=== PATIENT | female | born 1940 | race Caucasian/White ===

== ENCOUNTER 2016-11-08 12:40 | Emergency (ER) | payer OTHER ==
[~2016-11-08] VITALS: Ht 160 cm; Wt 74.8 kg
[2016-11-08 12:47] VITALS: TEMP 36.8; Ht 160 cm; Wt 74.8 kg
--- NOTE | 2016-11-08 13:11 | EMERGENCY ROOM VISIT NOTE ---
History First contact with patient: 12:56 Chief Complaint: KNEEPAIN Stated Complaint: PAIN IN KNEE History of Present Illness The patient is a 76 year old female who presents to the Emergency Room with complaints of left knee and leg pain. The patient states that she arrived from [place] 4 days ago. It was in [address] The patient states that she had muscle spasm and cramping in both legs. She does not recall any specific injury. She denies any redness, swelling, warmth, fevers. She has a history of superficial thrombophlebitis. She has a history of meniscal injury in that leg. She denies any true pain while at rest. She was seen at [facility] and referred to the emergency department for further evaluation and management. She denies any pain in her chest or trouble breathing. She does take aspirin and Plavix secondary to a previous TIA. Review of Systems A 10 system review of systems was completed with positives and pertinent negatives listed in the HPI. Past Medical/Surgical History Medical Problems: (1) TIA (transient ischemic attack) Social History Smoking Status: Never Smoker Housing Status: lives with family Current/Historical Medications Scheduled Aspirin (Aspir-Low), 81 MG PO DAILY Atenolol (Tenormin), 25 MG PO QAM Atorvastatin (Lipitor), 10 MG PO QPM Citalopram Hydrobromide (Citalopram Hydrobromide), 10 MG PO DAILY Clopidogrel Bisulfate (Plavix), 75 MG PO DAILY Meloxicam (Meloxicam), 1 MG PO DAILY Pantoprazole (Protonix), 40 MG PO MWF Potassium (Potassium), 99 MG PO DAILY Triamterene/Hctz (Triamterene/Hctz 37.5-25MG), 1 TAB PO DAILY Allergies Coded Allergies: No Known Allergies (Unverified , 11/08/16) Physical Exam Vital Signs Date Time Temp Pulse Resp B/P (MAP) Pulse Ox O2 Delivery O2 Flow Rate FiO2 11/08/16 15:36 50 19 135/97 97 11/08/16 12:47 36.8 58 18 198/87 96 Room Air Physical Exam VITALS: Vitals are noted on the nurse's note and reviewed by myself. Vital signs stable. GENERAL: This is a 76-year-old female XX, in no acute distress, nondiaphoretic, well-developed well-nourished. SKIN: The skin was without rashes, erythema, edema, or bruising. There is no tenting of the skin. Capillary reflex less than 2 seconds. HEAD: Normocephalic atraumatic. EARS: External ears normal in appearance. EYES: Pupils equal round and reactive to light and accommodation. Conjunctivae without injection, sclerae without icterus. Extraocular movements intact. NOSE: Patent, turbinates without inflammation or discharge. No sinus tenderness. MOUTH: Mucous membranes moist. Tonsils are not enlarged. Pharynx without erythema or exudate. Uvula midline. Airway patent. Tongue does not deviate. NECK: Supple without nuchal rigidity. No JVD. HEART: Regular rate and rhythm without murmurs gallops or rubs. LUNGS: Clear to auscultation bilaterally without wheezes, rales or rhonchi. No retractions or accessory muscle use. MUSCULOSKELETAL: No muscle atrophy, erythema, or edema noted. Full range of motion without joint tenderness in all extremities. No tenderness to palpation. Normal gait. Strength 5/5 throughout. There is no obvious laxity. Negative anterior drawer. There is a positive Danya's. NEURO: Patient was alert and oriented to person place and time. No focal neurological deficits. Medical Decision & Procedures ER Provider Diagnostic Interpretation: LEFT KNEE 3 VIEWS HISTORY: left knee pain COMPARISON: None. FINDINGS: No acute fracture or dislocation. No significant knee effusion. Chondrocalcinosis. Mild tricompartmental osteoarthritis. 9 mm cortical defect within the central weightbearing portion of the medial femoral condyle. There is surrounding sclerosis. This favors an osteochondral defect. There may be a small 5 mm intra-articular loose body adjacent to the medial joint space. IMPRESSION: 1. No acute fracture or dislocation within the left knee. 2. A 9 mm osteochondral defect within the medial femoral condyle. There may be a 5 mm intra-articular loose body adjacent to the medial aspect of the knee joint. 3. Chondrocalcinosis. LEFT LOWER EXTREMITY VENOUS DOPPLER HISTORY: left calf and posterior knee pain COMPARISON STUDY: None. FINDINGS: There is normal compressibility, flow, and augmentation within the left lower extremity deep venous system. IMPRESSION: No DVT within the left lower extremity. ED Course The patient was seen and examined. Previous visits were reviewed. The patient does not have fever. There is no erythema or warmth to the knee to suggest gout or infection. Imaging was obtained as above. There is no evidence for DVT. The patient has degenerative changes to the left knee on x-ray. She has what looks like an osteochondral defect. This could be related to her previous meniscal tear or could be new. She does have an orthopedic doctor at home and should contact them for a follow-up appointment for further evaluation and management. She was given an Darren wrap. She declined pain medications or walker. She should return to the ER with any worsening symptoms. The patient was also seen and examined by Dr. Katz who agrees with the assessment and treatment plan. Medical Decision The differential diagnosis includes cellulitis, septic arthritis, gout, DVT, superficial thrombophlebitis, Newberry's cyst, ligamentous injury, meniscal injury , osteoarthritis, among others Impression Primary Impression: Osteoarthritis, knee Additional Impression: Pain in left lower leg Departure Information Dispostion Home / Self-Care Condition GOOD Referrals Tom Venegas M.D. Patient Instructions ED Meniscal Injury Knee Poss, [facility], Osteoarthritis Additional Instructions Try tylenol, according to package instructions, for pain Avoid NSAIDs such as motrin, advil, ibuprofen, aleve Contact your orthopedic doctor when you return home for recheck, further management Return with worsening symptoms, redness, pain swelling, chest pain, trouble breathing Problem Qualifiers
[2016-11-08] MEDS ORDERED: PLAVIX75 PO (13:16)
[2016-11-08] MEDS ORDERED: MELO15TA4 PO (13:16)
[2016-11-08] MEDS ORDERED: ATEN-173 PO (13:17)
[2016-11-08] MEDS ORDERED: POTA99TA PO (13:17)
[2016-11-08] MEDS ORDERED: ATOR10TA82 PO (13:17)
[2016-11-08] MEDS ORDERED: TRIATAB3 PO (13:17)
[2016-11-08] MEDS ORDERED: CITA10TA4 PO (13:17)
[2016-11-08] MEDS ORDERED: ASPI81TA25 PO (13:17)
[2016-11-08] MEDS ORDERED: PANT40TA PO (13:17)
--- NOTE | 2016-11-08 13:44 | EMERGENCY ROOM VISIT NOTE ---
ED Visit Note First contact with patient: 12:56 I have seen and examined this patient with Sophia Knight and generally agree with the treatment plan as discussed. Current/Historical Medications Scheduled Aspirin (Aspir-Low), 81 MG PO DAILY Atenolol (Tenormin), 25 MG PO QAM Atorvastatin (Lipitor), 10 MG PO QPM Citalopram Hydrobromide (Citalopram Hydrobromide), 10 MG PO DAILY Clopidogrel Bisulfate (Plavix), 75 MG PO DAILY Meloxicam (Meloxicam), 1 MG PO DAILY Pantoprazole (Protonix), 40 MG PO MWF Potassium (Potassium), 99 MG PO DAILY Triamterene/Hctz (Triamterene/Hctz 37.5-25MG), 1 TAB PO DAILY Allergies Coded Allergies: No Known Allergies (Unverified , 11/08/16) Vital Signs Date Time Temp Pulse Resp B/P (MAP) Pulse Ox O2 Delivery O2 Flow Rate FiO2 11/08/16 12:47 36.8 58 18 198/87 96 Room Air Departure Information Referrals No Doctor, Assigned (PCP) Patient Instructions My [facility]
--- NOTE | 2016-11-08 14:56 | DIAGNOSTIC IMAGING REPORT ---
LEFT KNEE 3 VIEWS HISTORY: left knee pain COMPARISON: None. FINDINGS: No acute fracture or dislocation. No significant knee effusion. Chondrocalcinosis. Mild tricompartmental osteoarthritis. 9 mm cortical defect within the central weightbearing portion of the medial femoral condyle. There is surrounding sclerosis. This favors an osteochondral defect. There may be a small 5 mm intra-articular loose body adjacent to the medial joint space. IMPRESSION: 1. No acute fracture or dislocation within the left knee. 2. A 9 mm osteochondral defect within the medial femoral condyle. There may be a 5 mm intra-articular loose body adjacent to the medial aspect of the knee joint. 3. Chondrocalcinosis. Electronically signed by: Bay Nunn M.D. 11/08/2016 2:55 PM Dictated Date/Time: 11/08/2016 2:52 PM
--- NOTE | 2016-11-08 15:04 | DIAGNOSTIC IMAGING REPORT ---
LEFT LOWER EXTREMITY VENOUS DOPPLER HISTORY: left calf and posterior knee pain COMPARISON STUDY: None. FINDINGS: There is normal compressibility, flow, and augmentation within the left lower extremity deep venous system. IMPRESSION: No DVT within the left lower extremity. Electronically signed by: Bay Nunn M.D. 11/08/2016 3:02 PM Dictated Date/Time: 11/08/2016 3:02 PM
[2016-11-08 15:36] VITALS: BP 135/97; PULSE 50; O2SAT 97
== END 2016-11-08 15:37 | disposition home or self-care (01) ==
LOC: C.EDB 12:41 → C.EDD 15:37
DX: M17.12 Unilateral primary osteoarthritis, left knee (principal); M79.662 Pain in left lower leg; Z86.72 Personal history of thrombophlebitis; Z79.01 Long term (current) use of anticoagulants; Z79.82 Long term (current) use of aspirin; Z86.73 Personal history of transient ischemic attack (TIA), and cerebral infarction without residual deficits

== ENCOUNTER 2024-02-28 14:31 | Observation (INO) ==
[2024-02-28 16:50] LABS: Basophils # (auto) 0.01 K/uL (0.00-0.20); Basophils % (auto) 0.1 %; Eosinophils # (auto) 0.51 K/uL (0.00-0.50); Eosinophils % (auto) 3.9 %; Hematocrit (blood only) 39.7 % (37.0-47.0); Hemoglobin 12.9 g/dl (12.0-16.0); Immature Granulocytes # (auto) 0.06 K/uL (0.01-0.20); Immature Granulocytes % (auto) 0.5 %; Lymphocytes # (auto) 1.72 K/uL (1.20-3.40); Lymphocytes % (auto) 13.1 %; Mean Corpuscular Hemoglobin 30.7 pg (25.0-34.0); Mean Corpuscular Hgb Conc 32.5 g/dL (32.0-36.0); Mean Corpuscular Volume 94.5 fL (80.0-100.0); Mean Platelet Volume 9.8 fL (9.4-12.4); Monocytes # (auto) 0.72 K/uL (0.11-0.59); Monocytes % (auto) 5.5 %; Neutrophils # (auto) 10.09 K/uL (1.40-6.50); Neutrophils % (auto) 76.9 %; Platelet Count 180 K/uL (130-400); RDW Coefficient of Variation 13.2 % (11.5-14.5); RDW Standard Deviation 45.6 fL (36.4-46.3); White Blood Count 13.11 K/ul (4.8-10.8)
[2024-02-28 17:12] LABS: Albumin Globulin Ratio 1.4 (0.9-2); Albumin Level 3.7 gm/dl (3.4-5.0); BUN Creatinine Ratio 19.3 (10-20); Bilirubin,Total 0.9 mg/dl (0.2-1.0); Calcium 8.8 mg/dl (8.6-10.3); Creatinine Clr Calc Pharmacy 22.2 ml/min; Globulin 2.6 gm/dl (2.5-4.0); Potassium 4.1 mmol/L (3.5-5.1); Total Protein 6.3 gm/dl (6.0-8.3)
--- NOTE | 2024-02-28 17:20 | Emergency Department Note ---
Impression & Plan SETH (acute kidney injury), Acute UTI, Allergic reaction, Failure of outpatient treatment ED Provider Note NAME: VITALY CALDERON AGE: 83 SEX: F : 1940 ARRIVES VIA: Walk-In INFORMANT: [Patient] ED PROVIDER(S): [Brandt Cifuentes MD] CHIEF COMPLAINT: Rash HISTORY OF PRESENT ILLNESS: The patient is an 83-year-old female who states that she was diagnosed with a urinary infection. The patient had been on Macrobid but this was not clearing her infection. She came to the ED yesterday and was found have a white count of 15,000. She was diagnosed with a UTI and given a dose of IV Rocephin. After she returned home, she developed hives. The hives continued today and she was told not to take the Keflex that had been prescribed outpatient. She tried to see her doctor's office but was referred to the ER. The patient states that she did take a Benadryl earlier today. She thinks the hives are a bit better. There is no shortness of breath, no cough or cold. She does complain of some lower back pain but she was told this was likely from her urinary infection. There is no fever today however, yesterday, there was a low-grade temperature. PMHx/PSHx/Social Hx: See Below PHYSICAL EXAM: GENERAL: Patient is in no acute distress. HEENT: No acute trauma, normocephalic atraumatic, mucous membranes moist, no nasal congestion. No uvular edema. NECK: No stridor, no adenopathy, no meningismus, trachea is midline. LUNGS: Clear to auscultation bilaterally, no wheeze, no rhonchi, breath sounds equal. HEART: Without murmurs gallops or rubs, regular rate and rhythm. ABDOMEN: Soft, nontender, no peritonitis. EXTREMITIES: No cyanosis, full range of motion of all the joints without pain or difficulty. NEUROLOGIC: Oriented x 3, no acute motor or sensory deficits, no focal weakness. SKIN: No jaundice, no diaphoresis. She does have some scattered raised erythematous lesions consistent with urticaria. These do [place]. DIFFERENTIAL DIAGNOSIS: Allergic reaction, pyelonephritis, failed outpatient management, renal failure, among others. EMERGENCY DEPARTMENT PROCEDURES: MEDICAL DECISION MAKING: There is a mild leukocytosis, the white count has decreased from yesterday's value of 15. There was a normal hemoglobin and platelet count. There was some acute kidney injury with a creatinine of 1.71. No electrolyte abnormality in need of emergent correction. There was no concerning liver enzyme elevation. On exam, the patient did have urticarial lesions consistent with an allergic reaction. She was not wheezing. There was no uvular edema. Patient received IV saline, 1 L. She was given a dose of oral Levaquin, 500 mg. Given the failed outpatient treatment for UTI, given her allergic reaction, given the acute kidney injury, given her age, I do think a hospital stay is warranted. I did speak with the patient and her family. I spoke with case management, the on-call hospitalist was consulted. Prior/Outside records/notes reviewed: Previous ED visit note describing her presentation, care and plan outpatient. Imaging/x-ray results per my interpretation: Chronic Medical/Social conditions affecting care: Advanced age. Care/Management discussed with: Case management, the on-call hospitalist. Level of care consideration(s): After review of the information above and other included data: --I believe the patient requires escalation of care to admission DISPOSITION: Admission Past Med/Surg History Problem List (Updated 02/28/24 @ 22:08 by Brandt Cifuentes MD) Failure of outpatient treatment (Acute) Allergic reaction (Acute) Acute UTI (Acute) SETH (acute kidney injury) (Acute) SETH (acute kidney injury) Fever (Acute) Urinary tract infection (Acute) Low TSH level Osteoarthritis involving multiple joints on both sides of body Prediabetes Pain in left lower leg Left leg swelling Conjunctival hemorrhage, right eye TIA (transient ischemic attack) Osteoarthritis, knee (Chronic) Irritable bowel syndrome (Chronic) Hypertension (Chronic) Hyperlipidemia (Chronic) GERD without esophagitis (Chronic) Anxiety (Chronic) Prolapsed bladder (Chronic) Memory impairment Subclinical hypothyroidism CKD (chronic kidney disease) Pneumonia due to 2019 novel coronavirus (04/28/20) Cervical neck pain with evidence of disc disease Lumbar stenosis Stage 3b chronic kidney disease Dementia Inverted nipple Medical History Pituitary cyst History of hyperlipidemia History of depression History of cerebrovascular accident TSH elevation Surgical History H/O: knee surgery torn miniscus H/O: hysterectomy Family History Brother Family history of alcohol abuse Hypertension Cancer bone or lung Colon cancer age 58 Sister Cardiac disorder Hypertension Myocardial infarction Mother Cancer bone or lung Hypertension Denies family history of Ovarian cancer Prostate cancer Breast cancer Colorectal cancer Lung disease Social History Smoking Status: Never smoker Second Hand Exposure: No; Do You Dip or Chew Tobacco: No; Hx Alcohol Use: No Hx Substance Use: No Preferred Language: [place]ese Communication Ability: Effective Visual Impairment: No Limitations Hearing Ability: Normal Angle Roll Operator Required: No Beliefs That Will Affect Care: None marital status: Current Living Situation: Spouse current occupational status: retired Feels Safe at Home: Yes Childhood Exposure to Second-Hand Smoke: No Diet: regular Diet Comment: regular caffeine: Yes during the past year weight has: remained stable Dental Care, Regularly: No Physical Activity Frequency: Daily Seatbelt Use: always Sunscreen Use: Yes (Allergeric to it) Assistive Devices: Denture - Upper, Denture - Lower and Glasses Allergies Allergies Allergy/AdvReac Type Severity Reaction Status Date / Time amoxicillin [From Augmentin] AdvReac Severe Vomiting-bl Verified 11/27/23 13:29 ood clavulanic acid AdvReac Severe Vomiting-bl Verified 11/27/23 13:29 [From Augmentin] ood Rocephin Allergy Severe Hives Uncoded 02/28/24 09:26 Cephalexin(Keflex) Allergy Intermediate Hives Uncoded 02/28/24 09:26 Home Meds Home Medications Medication Instructions Recorded Confirmed multivitamin (Daily Multi-Vitamin 1 tab PO DAILY 01/06/19 02/28/24 tablet) Saccharomyces boulardii 250 mg 60,000 mmu cells PO DAILY 05/28/23 02/28/24 capsule (Daily Probiotic (S. boulardii)) estradiol 0.01% (0.1 mg/gram) 0.1 g vaginal DIRECTED 02/28/24 02/28/24 vaginal cream memantine 10 mg tablet 5 mg PO BID 02/28/24 02/28/24 Previous Rx's Medication Instructions Recorded amlodipine 5 mg tablet 5 mg PO HS #90 tabs 05/10/23 carvedilol 6.25 mg tablet (Coreg) 6.25 mg PO BID #180 tabs 07/30/23 citalopram 10 mg tablet 10 mg PO DAILY #90 tabs 11/05/23 dicyclomine 20 mg tablet 20 mg PO BID #180 tabs 11/05/23 famotidine 40 mg tablet 40 mg PO BID #180 tabs 11/05/23 losartan 100 mg tablet 50 mg (1/2 x 100 mg) PO BID #90 11/05/23 tabs clopidogrel 75 mg tablet 75 mg PO DAILY #90 tabs 01/15/24 simvastatin 20 mg tablet 20 mg PO QPM #90 tabs 01/15/24 donepezil 5 mg disintegrating 5 mg PO DAILY #90 tabs 01/30/24 tablet Results & Data (ED) Vital Signs Vital Signs - 24 hr 02/28/24 14:55 Temperature 36.1 C L Temperature Source Temporal Artery Scan Pulse Rate 65 Respiratory Rate 18 Respiratory Effort / Characteristics Non-Labored Spontaneous Respiratory Depth Normal Respiratory Pattern Regular Blood Pressure 113/57 L Blood Pressure Mean 75 Pulse Oximetry 93 Oxygen Delivery Method Room Air Sepsis Recent Fever Within 48 Hours No Sepsis New/Unexplained Change in Mental Status N/A Sepsis Action Taken by Nursing No Action Required Home Medications Current Medication List: was personally reviewed by me Laboratory Data Attestation: I reviewed the patient's lab results. 02/28/24 16:23 02/28/24 16:23 Lab Results 02/28/24 Range/Units 16:23 WBC 13.11 H (4.8-10.8) K/ul RBC 4.20 (4.20-5.40) M/uL Hgb 12.9 (12.0-16.0) g/dl Hct 39.7 (37.0-47.0) % MCV 94.5 (80.0-100.0) fL MCH 30.7 (25.0-34.0) pg MCHC 32.5 (32.0-36.0) g/dL RDW Std Deviation 45.6 (36.4-46.3) fL RDW Coeff of Hafsa 13.2 (11.5-14.5) % Plt Count 180 (130-400) K/uL MPV 9.8 (9.4-12.4) fL Immature Gran % (Auto) 0.5 % Neut % (Auto) 76.9 % Lymph % (Auto) 13.1 % Josephine % (Auto) 5.5 % Eos % (Auto) 3.9 % Baso % (Auto) 0.1 % Neut # (Auto) 10.09 H (1.40-6.50) K/uL Lymph # (Auto) 1.72 (1.20-3.40) K/uL Josephine # (Auto) 0.72 H (0.11-0.59) K/uL Eos # (Auto) 0.51 H (0.00-0.50) K/uL Baso # (Auto) 0.01 (0.00-0.20) K/uL Immature Gran # (Auto) 0.06 (0.01-0.20) K/uL Sodium 137 (136-145) mmol/L Potassium 4.1 (3.5-5.1) mmol/L Chloride 103 (98-107) mmol/L Carbon Dioxide 24 (21-32) mmol/L Anion Gap 10 (3-11) BUN 33 H (6-23) mg/dl Creatinine 1.71 H D (0.6-1.2) mg/dl Est Cr Clr Drug Dosing 22.2 ml/min eGFR 29.18 BUN/Creatinine Ratio 19.3 (10-20) Glucose 115 H (70-99(Fasting)) mg/dl Calcium 8.8 (8.6-10.3) mg/dl Total Bilirubin 0.9 (0.2-1.0) mg/dl AST 15 (13-39) U/L ALT 13 (7-52) U/L Alkaline Phosphatase 51 (34-104) U/L B-Natriuretic Peptide 154 H (0-100) pg/ml Total Protein 6.3 (6.0-8.3) gm/dl Albumin 3.7 (3.4-5.0) gm/dl Globulin 2.6 (2.5-4.0) gm/dl Albumin/Globulin Ratio 1.4 (0.9-2) Administered Medications Amlodipine Besylate (Amlodipine Besylate 5 Mg Tab) 5 mg PO HS [facility] Stop: 03/29/24 20:59 Last Admin: 02/28/24 21:11 Dose: 5 mg Documented By: VALDEMAR Carvedilol (Carvedilol 6.25 Mg Tab) 6.25 mg PO BIDM FELIPA Stop: 03/29/24 20:29 Last Admin: 02/28/24 21:13 Dose: Not Given Documented By: VALDEMAR Dicyclomine HCl (Dicyclomine Hcl 20 Mg Tab) 20 mg PO BID FELIPA Stop: 03/29/24 20:59 Last Admin: 02/28/24 21:11 Dose: 20 mg Documented By: VALDEMAR Famotidine (Famotidine 40 Mg Tablet) 40 mg PO BID FELIPA Stop: 03/29/24 20:59 Last Admin: 02/28/24 21:11 Dose: 40 mg Documented By: VALDEMAR Lactated Ringer's (Lr) 1,000 mls @ 125 mls/hr IV .Q8H FELIPA Stop: 02/29/24 10:14 Last Admin: 02/28/24 21:13 Dose: 125 mls/hr Documented By: VALDEMAR Memantine (Memantine Hcl 5 Mg Tab) 5 mg PO BID FELIPA Stop: 03/29/24 20:59 Last Admin: 02/28/24 21:11 Dose: 5 mg Documented By: VALDEMAR Simvastatin (Simvastatin 20 Mg Tab) 20 mg PO QPM FELIPA Stop: 03/29/24 20:59 Last Admin: 02/28/24 21:11 Dose: 20 mg Documented By: VALDEMAR Discontinued Medications Cetirizine HCl (Cetirizine Hcl 10 Mg Tablet) 10 mg PO NOW STA Stop: 02/28/24 19:41 Last Admin: 02/28/24 19:47 Dose: 10 mg Documented By: VALDEMAR Sodium Chloride (Nss) 1,000 mls @ 999 mls/hr IV .Q1H1M ONE Stop: 02/28/24 18:16 Last Infusion: 02/28/24 21:15 Dose: Infused Documented By: Admin: 02/28/24 18:17 Dose: 999 mls/hr Documented By: MARTY Levofloxacin (Levofloxacin 500 Mg Tab) 500 mg PO NOW STA Stop: 02/28/24 16:43 Last Admin: 02/28/24 18:15 Dose: 500 mg Documented By: MARTY Discharge Plan Visit Data Chief Complaint: Rash Stated Complaint: HIVES, ALL OVER, GOT AN IV YESTERDAY ED Provider: Brandt Cifuentes Discharge Problem: SETH (acute kidney injury), Acute UTI, Allergic reaction, Failure of outpatient treatment Patient Disposition: Admitted As Inpatient Condition: Fair Discharge Instructions Interventions: ED Discharge Assessment Last Done: 02/28/24 20:16 Discharge Problem: Allergic reaction Qualifiers: Encounter type: initial encounter Qualified Code(s): T78.40XA - Allergy, unspecified, initial encounter
[2024-02-28] MEDS: levoFLOXacin 500 MG TAB PO STA (18:15)
[2024-02-28] MEDS: SODIUM CHLORIDE 0.9% 1,000 ML IV ONE (18:17)
--- NOTE | 2024-02-28 18:17 | History & Physical Report ---
Date of Service February 28, 2024 Assessment & Plan (1) Allergic drug rash: Plan: Suspected secondary to ceftriaxone given in ER yesterday Start with cetirizine 10mg PO BID and diphenhydramine 12.5mg IV PRN (just for use at night prior to 5am) If not improving in AM (see pictures) consider addition of steroids (2) Urinary tract infection: Plan: Mild left CVA tenderness possibly consistent with pyelonephritis Levaquin 750mg (renally dosed) PO daily (3) SETH (acute kidney injury): Plan: Suspected pre-renal despite pulmonary edema on CXR, repeat ordered. Continue LR @125ml/hr overnight and repeat Cr in AM Hold losartan Plan VTE prophylaxis - heparin 5000 units SQ BID Diet - regular Disposition - observation to med/surg Admission and Anticipated Discharge Date Admission Date: February 28, 2024 History of Present Illness Chief Complaint: Rash, urinary symptoms Primary Care Provider: GREG Castañeda Haley Perez is a 83 year old female who presents to the ER with rash and urinary symptoms. She reports ongoing urinary frequency with some change in color since the end of March. Urine culture at that time grew E. coli and she was treated with Macrobid starting 02/20 for 5 days. Due to no change in her symptoms she went to the ER yesterday on February 26 and was given IV ceftriaxone and discharged on cephalexin. 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 She called her PCP and was advised not to take the antibiotic and she was referred to the ER. Of note CXR yesterday was somewhat concerning for pulmonary edema however she denies any chest pain, shortness of breath or cough. No history of heart failure. Allergies Allergy/AdvReac Type Severity Reaction Status Date / Time ceftriaxone [From Rocephin] Allergy Severe Hives Verified 02/29/24 00:48 cephalexin Allergy Intermediate Hives Verified 02/29/24 00:48 amoxicillin [From Augmentin] AdvReac Severe Vomiting-bl Verified 11/27/23 13:29 ood clavulanic acid AdvReac Severe Vomiting-bl Verified 11/27/23 13:29 [From Augmentin] ood Home Medications Medication Instructions Recorded Confirmed Type multivitamin (Daily Multi-Vitamin 1 tab PO DAILY 01/06/19 02/28/24 History tablet) amlodipine 5 mg tablet 5 mg PO HS #90 tabs 05/10/23 02/28/24 Rx Saccharomyces boulardii 250 mg 60,000 mmu cells PO DAILY 05/28/23 02/28/24 History capsule (Daily Probiotic (S. boulardii)) carvedilol 6.25 mg tablet (Coreg) 6.25 mg PO BID #180 tabs 07/30/23 02/28/24 Rx citalopram 10 mg tablet 10 mg PO DAILY #90 tabs 11/05/23 02/28/24 Rx dicyclomine 20 mg tablet 20 mg PO BID #180 tabs 11/05/23 02/28/24 Rx famotidine 40 mg tablet 40 mg PO BID #180 tabs 11/05/23 02/28/24 Rx losartan 100 mg tablet 50 mg (1/2 x 100 mg) PO BID #90 11/05/23 02/28/24 Rx tabs clopidogrel 75 mg tablet 75 mg PO DAILY #90 tabs 01/15/24 02/28/24 Rx simvastatin 20 mg tablet 20 mg PO QPM #90 tabs 01/15/24 02/28/24 Rx donepezil 5 mg disintegrating 5 mg PO DAILY #90 tabs 01/30/24 02/28/24 Rx tablet estradiol 0.01% (0.1 mg/gram) 0.1 g vaginal DIRECTED 02/28/24 02/28/24 History vaginal cream memantine 10 mg tablet 5 mg PO BID 02/28/24 02/28/24 History Past Med/Surg History Problem List (Updated 02/29/24 @ 00:10 by Ge Lutz MD) Allergic drug rash Failure of outpatient treatment (Acute) Allergic reaction (Acute) Acute UTI (Acute) SETH (acute kidney injury) (Acute) SETH (acute kidney injury) Fever (Acute) Urinary tract infection (Acute) Low TSH level Osteoarthritis involving multiple joints on both sides of body Prediabetes Pain in left lower leg Left leg swelling Conjunctival hemorrhage, right eye TIA (transient ischemic attack) Osteoarthritis, knee (Chronic) Irritable bowel syndrome (Chronic) Hypertension (Chronic) Hyperlipidemia (Chronic) GERD without esophagitis (Chronic) Anxiety (Chronic) Prolapsed bladder (Chronic) Memory impairment Subclinical hypothyroidism CKD (chronic kidney disease) Pneumonia due to 2019 novel coronavirus (04/28/20) Cervical neck pain with evidence of disc disease Lumbar stenosis Stage 3b chronic kidney disease Dementia Inverted nipple Medical History Pituitary cyst History of hyperlipidemia History of depression History of cerebrovascular accident TSH elevation Surgical History H/O: knee surgery torn miniscus H/O: hysterectomy Family History Brother Family history of alcohol abuse Hypertension Cancer bone or lung Colon cancer age 58 Sister Cardiac disorder Hypertension Myocardial infarction Mother Cancer bone or lung Hypertension Denies family history of Ovarian cancer Prostate cancer Breast cancer Colorectal cancer Lung disease Social History Smoking Status: Never smoker Second Hand Exposure: No; Do You Dip or Chew Tobacco: No; Hx Alcohol Use: No Hx Substance Use: No Preferred Language: Mongolian Communication Ability: Effective Visual Impairment: No Limitations Hearing Ability: Normal Basting Puller Required: No Beliefs That Will Affect Care: None marital status: Current Living Situation: Spouse current occupational status: retired Feels Safe at Home: Yes Childhood Exposure to Second-Hand Smoke: No Diet: regular Diet Comment: regular caffeine: Yes during the past year weight has: remained stable Dental Care, Regularly: No Physical Activity Frequency: Daily Seatbelt Use: always Sunscreen Use: Yes (Allergeric to it) Assistive Devices: Denture - Upper, Denture - Lower and Glasses Review of Systems 2 Review of Systems: All systems reviewed & are unremarkable except as noted in HPI & below Physical Exam 2 Constitutional: WD/WN, vitals as above ENMT: external ear and nose normal, oropharynx normal Respiratory: normal respiratory effort, lungs clear to auscultation Cardiovascular: RRR, no murmur, no edema Gastrointestinal (Abdomen): normal bowel sounds, soft, nontender, no hepatosplenomegaly Skin: Neurologic: moves all extremities and awake; not confused Psychiatric: A+Ox3, euthymic affect Genitourinary: + CVA tenderness (left) Results & Data Results & Data Vital Signs (Past 12 Hours) Vital Signs Temp Pulse Resp BP Pulse Ox O2 Del Method 02/28/24 14:55 36.1 C L 65 18 113/57 L 93 Room Air Laboratory Results Abnormal lab results 02/28/24 Range/Units 16:23 WBC 13.11 H (4.8-10.8) K/ul Neut # (Auto) 10.09 H (1.40-6.50) K/uL [place] # (Auto) 0.72 H (0.11-0.59) K/uL Eos # (Auto) 0.51 H (0.00-0.50) K/uL BUN 33 H (6-23) mg/dl Creatinine 1.71 H D (0.6-1.2) mg/dl Glucose 115 H (70-99(Fasting)) mg/dl Diagnostic Findings None Medications Administered ER medications given: Normal saline 1 L bolus Levaquin 500 mg p.o. Code Status & VTE Plan Code Status Full VTE Prophylaxis Plan VTE Prophylaxis will be ordered: Yes PG Care Time/CCT Total # of Minutes Spent Total Time Spent with Patient: Total time spent is greater than 50% in coordination of care (as documented) at patient's floor/unit and/or counseling patient: Coding Level of Care Code 69817 INT INP/OBS CARE 3/75MIN Diagnoses Allergic drug rash L27.0 Urinary tract infection N39.0 Hematuria presence: without hematuria Urinary tract infection type: site unspecified STEH (acute kidney injury) N17.9 (2) Urinary tract infection Hematuria presence: without hematuria Urinary tract infection type: site unspecified Qualified Code(s): N39.0 - Urinary tract infection, site not specified
--- NOTE | 2024-02-28 18:59 | XRay Report ---
SINGLE VIEW CHEST CLINICAL HISTORY: Pulmonary edema FINDINGS: An AP, portable, upright chest radiograph is compared to study dated 02/27/2024. The heart i s enlarged. There is evidence of congestive failure and pulmonary edema. Right upper lobe airspace op acities have partially cleared from yesterday. There are small pleural effusions with dependent conso lidation. No pneumothorax is seen. The skeletal structures are osteopenic. The bony thorax is grossly intact. IMPRESSION: 1. Cardiomegaly with evidence of congestive failure and pulmonary edema. 2. Right upper lobe airspace opacities have partially cleared from yesterday. Continued follow-up to resolution is recommended. 3. Small pleural effusions with dependent consolidation. ACT 112: Negative or not required by law. Electronically signed by: Brandt Hadley M.D. 02/28/2024 6:58 PM
[2024-02-28] MEDS: CETIRIZINE HCL 10 MG TABLET PO STA (19:47)
[2024-02-28] MEDS: MEMANTINE HCL 5 MG TAB PO SCH (21:11)
[2024-02-28] MEDS: SIMVASTATIN 20 MG TAB PO SCH (21:11)
[2024-02-28] MEDS: DICYCLOMINE HCL 20 MG TAB PO SCH (21:11)
[2024-02-28] MEDS: amLODIPine BESYLATE 5 MG TAB PO SCH (21:11)
[2024-02-28] MEDS: FAMOTIDINE 40 MG TABLET PO SCH (21:11)
[2024-02-28] MEDS: carvediloL 6.25 MG TAB PO SCH (21:13)
[2024-02-28] MEDS: LACTATED RINGER'S 1,000 ML IV SCH (21:13)
[2024-02-29] MEDS ORDERED: diphenhydrAMINE 50 MG/ML VIAL IV PRN (00:08)
[2024-02-29] MEDS: SACCHAROMYCES BOULARDII 250 MG CAP PO SCH (08:32)
[2024-02-29] MEDS: MULTIVITAMIN TAB PO SCH (08:33)
[2024-02-29] MEDS: CITALOPRAM 20 MG TAB PO SCH (08:34)
[2024-02-29] MEDS: CETIRIZINE HCL 10 MG TABLET PO SCH (08:35)
[2024-02-29] MEDS: DONEPEZIL HCL 5 MG TAB PO SCH (08:36)
[2024-02-29] MEDS: CLOPIDOGREL BISULFATE 75 MG TAB PO SCH (08:37)
[2024-02-29] MEDS: HEPARIN SOD 5,000 UNIT/0.5 ML VIAL SQ SCH (08:46)
[2024-02-29] MEDS: levoFLOXacin 250 MG TABLET PO SCH (12:46)
--- NOTE | 2024-02-29 13:17 | Hospitalist Progress Note ---
Date of Service February 29, 2024 Assessment & Plan (1) Allergic drug rash: (2) Urinary tract infection: (3) Acute kidney injury superimposed on stage 3a chronic kidney disease: (4) Stage 3b chronic kidney disease: (5) TIA (transient ischemic attack): (6) Hypertension: (7) Hyperlipidemia: (8) Dementia: (9) Prediabetes: Plan 83-year-old female with past medical history of dementia, CKD stage IIIb, history of TIA, hypertension who presented to the ER with rash and urinary symp toms. Patient had an outpatient urine culture which grew E. coli and she was treated with Macrobid for 5 days starting 02/21/2024. 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 She called her PCP and was advised not to take the antibiotic and referred back to the ED. In the ED patient was also found to be in SETH with chest x-ray showing vascular congestion although patient without any respiratory symptoms #SETH superimposed on chronic kidney disease stage IIIb #Urinary tract infection Patient has baseline CKD stage IIIb Renal function seems to have worsened since baseline Unclear if this is related to her rash which appears to be allergic Check repeat urinalysis with microscopy and culture Check urine eosinophils Renal function has worsened in spite of being on IV antibiotics Hold ARB Continue IV antibiotics: Half-normal saline at 80 mL/h I/O monitoring Daily weights Avoid nephrotoxic agents including NSAIDs Monitor renal function and electrolytes Continue Levaquin 250 mg p.o. daily (day 2): Patient also received 1 day of IV ceftriaxone on 02/27/2024 #Allergic drug rash Appears to be secondary to IV ceftriaxone Avoid cephalosporins Decrease cetirizine to 10 mg daily in light of SETH on CKD #History of TIA #Essential hypertension #Hyperlipidemia #Chest x-ray showing vascular congestion 2D echo done: Results pending I/O monitoring Daily weights Hold losartan in light of SETH Continue amlodipine 5 mg p.o. nightly Continue carvedilol 6.25 mg p.o. twice daily Continue Plavix plus statin Monitor vital signs Check repeat two-view chest x-ray #Dementia Patient follows up with neurology as outpatient Continue Aricept and Namenda Continue citalopram Supportive care from nursing staff #Exposure to enterovirus in ED Check respiratory bio fire CODE STATUS: Full code DVT prophylaxis: Heparin subcutaneous twice daily Admission and Anticipated Discharge Date Admission Date: February 28, 2024 Subjective Patient seen and examined H&P reviewed Labs reviewed Radiology reviewed Patient denies any chest pain or shortness of breath. She denies any fever, chills or cough Patient has a rash all over her body, denies itchiness As per nursing staff, patient's roommate since overnight tested positive for enterovirus Patient states she has never been told about having CKD stage III. She denies taking NSAIDs Social history: Patient tells that she lives with her . Denies tobacco use or alcohol use Physical Exam Physical Exam: General: No acute distress Psych: Awake and alert, oriented to place and person only HEENT: Anicteric sclera, moist oral mucosa CVS: Regular rate and rhythm Lungs: Bilateral air entry, no wheezing noted Abdomen: Soft, nontender, no rebound, no guarding Ext: No lower extremity edema, no calf tenderness Neuro: No focal motor deficits noted Skin: Maculopapular rash noted over arms legs torso and back: Please see picture in H&P Results & Data Results & Data Vital Signs (Past 12 Hours) Vital Signs Pulse Resp BP Pulse Ox O2 Del Method 02/29/24 06:35 61 20 150/58 H 90 Room Air 02/29/24 03:47 62 20 155/63 H 92 Room Air 02/29/24 02:03 61 15 164/61 H 93 Room Air Laboratory Results Laboratory Results - last 24 hr 02/28/24 16:23 WBC 13.11 H RBC 4.20 Hgb 12.9 Hct 39.7 MCV 94.5 MCH 30.7 MCHC 32.5 RDW Std Deviation 45.6 RDW Coeff of Hafsa 13.2 Plt Count 180 MPV 9.8 Immature Gran % (Auto) 0.5 Neut % (Auto) 76.9 Lymph % (Auto) 13.1 [place] % (Auto) 5.5 Eos % (Auto) 3.9 Baso % (Auto) 0.1 Neut # (Auto) 10.09 H Lymph # (Auto) 1.72 [place] # (Auto) 0.72 H Eos # (Auto) 0.51 H Baso # (Auto) 0.01 Immature Gran # (Auto) 0.06 Sodium 137 Potassium 4.1 Chloride 103 Carbon Dioxide 24 Anion Gap 10 BUN 33 H Creatinine 1.71 H D Est Cr Clr Drug Dosing 22.2 eGFR 29.18 BUN/Creatinine Ratio 19.3 Glucose 115 H Calcium 8.8 Total Bilirubin 0.9 AST 15 ALT 13 Alkaline Phosphatase 51 B-Natriuretic Peptide 154 H Total Protein 6.3 Albumin 3.7 Globulin 2.6 Albumin/Globulin Ratio 1.4 Diagnostic Findings Chest X-Ray 02/28/24 18:16 SINGLE VIEW CHEST CLINICAL HISTORY: Pulmonary edema FINDINGS: An AP, portable, upright chest radiograph is compared to study dated 02/27/2024. The heart is enlarged. There is evidence of congestive failure and pulmonary edema. Right upper lobe airspace opacities have partially cleared from yesterday. There are small pleural effusions with dependent consolidation. No pneumothorax is seen. The skeletal structures are osteopenic. The bony thorax is grossly intact. IMPRESSION: 1. Cardiomegaly with evidence of congestive failure and pulmonary edema. 2. Right upper lobe airspace opacities have partially cleared from yesterday. Continued follow-up to resolution is recommended. 3. Small pleural effusions with dependent consolidation. ACT 112: Negative or not required by law. Electronically signed by: Brandt Hadley M.D. 02/28/2024 6:58 PM PG Care Time/CCT Total # of Minutes Spent Total Time Spent with Patient: Total time spent is greater than 50% in coordination of care (as documented) at patient's floor/unit and/or counseling patient: Coding Level of Care Code 87426 SUB INP/OBS CARE 3/50MIN Diagnoses Allergic drug rash L27.0 Urinary tract infection N39.0 Hematuria presence: without hematuria Urinary tract infection type: site unspecified Acute kidney injury superimposed on stage 3a chronic kidney disease N17.9; N18.31 Stage 3b chronic kidney disease N18.32 TIA (transient ischemic attack) G45.9 Hypertension I10 Hyperlipidemia E78.5 Dementia F03.90 Prediabetes R73.03 (2) Urinary tract infection Hematuria presence: without hematuria Urinary tract infection type: site unspecified Qualified Code(s): N39.0 - Urinary tract infection, site not specified
[2024-02-29 14:11] LABS: Appearance Urine Cloudy (Clear); Bacteria Urine Automated None Seen (None Seen); Bilirubin Urine Negative (Negative); Blood Urine Negative (Negative); Cast Urine Automated 0-2 /lpf (0-2); Color Urine Yellow; Glucose Urine UA Negative (Negative); Ketones Urine Negative (Negative); Leukocyte Esterase Urine 3+ (Negative); Nitrite Urine Negative (Negative); Protein Urine Trace (Negative); Specific Gravity Urine 1.021 (1.000-1.030); Urobilinogen Urine Negative (Negative); WBC Urine Automated 21-50 /hpf (0-5); pH Urine 5.5 (4.5-7.5)
--- NOTE | 2024-02-29 14:22 | XRay Report ---
XR chest PA, lat, obliques CLINICAL HISTORY: abnormal portable cxr COMPARISON STUDY: Chest radiograph February 28, 2024. FINDINGS: There is no pneumothorax. Trace bilateral pleural effusions are unchanged. Interstitial thi ckening has slightly improved. Cardiomediastinal silhouette is stable. Patchy right upper lung airspa ce opacity has improved since exam of February 27, 2024. There are mild bibasilar opacities. IMPRESSION: 1. Interval improvement in pulmonary edema. No change in trace bilateral pleural effusions. 2. Slight improvement in right midlung opacity which favors pneumonia. Continued radiographic follow- up to ensure resolution is recommended. 3. Persistent bibasilar opacities which favor atelectasis although an infectious process could appear similar. ACT 112: Negative or not required by law. Electronically signed by: Jose Funes M.D. 02/29/2024 2:21 PM
[2024-02-29] MEDS: SODIUM CHLORIDE 0.45 % 1,000 ML IV SCH (14:39)
--- NOTE | 2024-02-29 14:47 | Ultrasound Report ---
RENAL ULTRASOUND CLINICAL HISTORY: Acute kidney injury. Urinary tract infection. COMPARISON STUDY: CT of the abdomen and pelvis February 03, 2021. TECHNIQUE: Sonography of the kidneys and the urinary bladder was performed. FINDINGS: The right kidney measures 8 x 4.6 x 4.8 cm and the left measures 8.8 x 4.2 x 3.4 cm. There is no hydronephrosis. Several anechoic bilateral renal lesions represent cysts. No renal calculi are identified. There is trace left perinephric fluid. Bladder is collapsed. Right pleural effusion is in cidentally noted. IMPRESSION: 1. No hydronephrosis. 2. Several renal cysts. ACT 112: Negative or not required by law. Electronically signed by: Jose Funes M.D. 02/29/2024 2:46 PM
--- NOTE | 2024-02-29 19:31 | XCELERA ---
[id number]
[2024-02-29 20:37] LABS: Adenovirus PCR Not Detected (NotDetected); Bordetella parapertussis PCR Not Detected (NotDetected); Bordetella pertussis PCR Not Detected (NotDetected); Chlamydia pneumoniae PCR Not Detected (NotDetected); Coronavirus 229E PCR Not Detected (NotDetected); Coronavirus CoV-2 (COVID19)PCR Not Detected (NotDetected); Coronavirus HKU1 PCR Not Detected (NotDetected); Coronavirus NL63 PCR Not Detected (NotDetected); Coronavirus OC43PCR Not Detected (NotDetected); Human Metapneumovirus PCR Not Detected (NotDetected); Influenza A PCR Not Detected (NotDetected); Influenza B PCR Not Detected (NotDetected); Mycoplasma pneumoniae PCR Not Detected (NotDetected); Parainfluenza Virus 1 PCR Not Detected (NotDetected); Parainfluenza Virus 2 PCR Not Detected (NotDetected); Parainfluenza Virus 3 PCR Not Detected (NotDetected); Parainfluenza Virus 4 PCR Not Detected (NotDetected); Respiratory Syncytial VirusPCR Not Detected (NotDetected); Rhinovirus/Enterovirus PCR Not Detected (NotDetected)
[2024-03-01 06:43] LABS: Basophils # (auto) 0.02 K/uL (0.00-0.20); Basophils % (auto) 0.2 %; Eosinophils # (auto) 0.76 K/uL (0.00-0.50); Eosinophils % (auto) 8.5 %; Hematocrit (blood only) 32.7 % (37.0-47.0); Hemoglobin 10.7 g/dl (12.0-16.0); Immature Granulocytes # (auto) 0.04 K/uL (0.01-0.20); Immature Granulocytes % (auto) 0.4 %; Lymphocytes % (auto) 21.2 %; Mean Corpuscular Hemoglobin 30.4 pg (25.0-34.0); Mean Corpuscular Hgb Conc 32.7 g/dL (32.0-36.0); Mean Corpuscular Volume 92.9 fL (80.0-100.0); Mean Platelet Volume 9.9 fL (9.4-12.4); Monocytes # (auto) 0.46 K/uL (0.11-0.59); Monocytes % (auto) 5.1 %; Neutrophils % (auto) 64.6 %; Platelet Count 154 K/uL (130-400); RDW Coefficient of Variation 12.9 % (11.5-14.5); RDW Standard Deviation 43.6 fL (36.4-46.3); Red Blood Count 3.52 M/uL (4.20-5.40); White Blood Count 8.98 K/ul (4.8-10.8)
[2024-03-01 07:14] LABS: Albumin Globulin Ratio 1.6 (0.9-2); Albumin Level 2.9 gm/dl (3.4-5.0); BUN Creatinine Ratio 21.4 (10-20); Bilirubin,Total 0.5 mg/dl (0.2-1.0); Calcium 8.3 mg/dl (8.6-10.3); Creatinine Clr Calc Pharmacy 36.9 ml/min; Estimated Average Glucose 128 mg/dl; Globulin 1.8 gm/dl (2.5-4.0); Hemoglobin A1C 6.1 % (4.5-5.6); Magnesium 1.4 mg/dl (1.7-2.4); Potassium 3.9 mmol/L (3.5-5.1); Total Protein 4.7 gm/dl (6.0-8.3)
[2024-03-01 07:57] VITALS: O2SAT 94
[2024-03-01] MEDS: MAGNESIUM SULFATE / D5W 1 GM/100 ML BAG IV SCH (09:49)
[2024-03-01] MEDS: CETIRIZINE HCL 10 MG TABLET PO SCH (09:51)
[2024-03-01] MEDS: FAMOTIDINE 20 MG TAB PO SCH (09:51)
[2024-03-01] MEDS: CYANOCOBALAMIN 1000 MCG/ML VIAL IM ONE (09:55)
[2024-03-01] MEDS: VITAMIN B COMPLEX TAB PO SCH (11:07)
--- NOTE | 2024-03-01 13:45 | Hospitalist Progress Note ---
Date of Service March 01, 2024 Assessment & Plan (1) Allergic drug rash: (2) Urinary tract infection: (3) Acute kidney injury superimposed on stage 3a chronic kidney disease: (4) Stage 3b chronic kidney disease: (5) TIA (transient ischemic attack): (6) Hypertension: (7) Hyperlipidemia: (8) Dementia: (9) Prediabetes: Plan 83-year-old female with past medical history of dementia, CKD stage IIIb, history of TIA, hypertension who presented to the ER with rash and urinary symp toms. Patient had an outpatient urine culture which grew E. coli and she was treated with Macrobid for 5 days starting 02/21/2024. Her symptoms did not improve and she presented to the ED initially on February 27, 2024 and was given IV ceftriaxone and discharged on oral Keflex and before she could chart picker oral antibiotic patient started developing a diffuse widespread urticarial rash. She called her PCP and was advised not to take the antibiotic and referred back to the ED. In the ED patient was also found to be in SETH with chest x-ray showing vascular congestion although patient without any respiratory symptoms #SETH superimposed on chronic kidney disease stage IIIb #Urinary tract infection Patient has baseline CKD stage IIIb Renal function seems to have worsened since baseline Unclear if this is related to her rash which appears to be allergic Renal ultrasound showed renal cysts, no hydronephrosis Repeat urine culture: Results pending Check urine eosinophils Renal function is improved with IV fluid hydration Stop IV fluids Continue to hold ARB I/O monitoring Daily weights Avoid nephrotoxic agents including NSAIDs Monitor renal function and electrolytes Continue Levaquin 250 mg p.o. daily (day 3): Patient also received 1 day of IV ceftriaxone on 02/27/2024 Outpatient referral to nephrology through PCP on discharge for monitoring her CKD #Allergic drug rash Appears to be secondary to IV ceftriaxone Avoid cephalosporins Rash improving Continue cetirizine 10 mg p.o. daily #History of TIA #Essential hypertension #Hyperlipidemia # Grade 2 diastolic dysfunction on echo, patient asymptomatic 2D echo from 02/29/2024 shows left ventricular systolic function is normal, EF is 60 to 65%, grade 2 diastolic dysfunction noted, mild mitral regurgitation, right ventricular systolic pressure is elevated at 40 to 50 mmHg I/O monitoring Daily weights Hold losartan in light of SETH Continue amlodipine 5 mg p.o. nightly Continue carvedilol 6.25 mg p.o. twice daily Continue Plavix plus statin Monitor vital signs Patient denies any cough or shortness of breath. She is saturating well on room air. Chest x-ray showing improvement in vascular congestion Outpatient follow-up with PCP for cardiology referral #Dementia Patient follows up with neurology as outpatient Continue Aricept and Namenda Continue citalopram Supportive care from nursing staff #Prediabetes A1c 6.1 Avoid high sugar foods and sodas Outpatient follow-up with PCP #Exposure to enterovirus in ED Patient is saturating well on room air Respiratory bio fire is negative CODE STATUS: Full code DVT prophylaxis: Heparin subcutaneous twice daily PT consult for discharge recommendations. Discharge likely tomorrow based on urine culture report and PT recommendations Care plan discussed with patient, nursing staff and daughter Eneida Suggs ([phone]) updated on the phone Admission and Anticipated Discharge Date Admission Date: February 28, 2024 Subjective Patient seen and examined Labs reviewed Radiology reviewed Patient denies any fever, cough, chills, urinary symptoms, nausea, vomiting, diarrhea or abdominal pain She is tolerating oral diet without any issues Patient states her rash is improving and does not feel it is itchy. Physical Exam Physical Exam: General: No acute distress Psych: Awake and alert, oriented to place and person only HEENT: Anicteric sclera, moist oral mucosa CVS: Regular rate and rhythm Lungs: Bilateral air entry, no wheezing noted Abdomen: Soft, nontender, no rebound, no guarding Ext: No lower extremity edema, no calf tenderness Neuro: No focal motor deficits noted Skin: Maculopapular rash noted over arms legs torso and back: Please see picture in H&P: Improving Results & Data Results & Data Vital Signs (Past 12 Hours) Vital Signs Temp Pulse Resp BP Pulse Ox O2 Del Method 03/01/24 07:08 36.9 C 70 14 149/57 H 94 Room Air Laboratory Results Laboratory Results - last 24 hr 02/29/24 02/29/24 03/01/24 13:48 19:39 06:15 WBC 8.98 RBC 3.52 L Hgb 10.7 L Hct 32.7 L MCV 92.9 MCH 30.4 MCHC 32.7 RDW Std Deviation 43.6 RDW Coeff of Hafsa 12.9 Plt Count 154 MPV 9.9 Immature Gran % (Auto) 0.4 Neut % (Auto) 64.6 Lymph % (Auto) 21.2 Story % (Auto) 5.1 Eos % (Auto) 8.5 Baso % (Auto) 0.2 Neut # (Auto) 5.80 Lymph # (Auto) 1.90 Story # (Auto) 0.46 Eos # (Auto) 0.76 H Baso # (Auto) 0.02 Immature Gran # (Auto) 0.04 Sodium 139 Potassium 3.9 Chloride 110 H Carbon Dioxide 22 Anion Gap 7 BUN 22 Creatinine 1.03 D Est Cr Clr Drug Dosing 36.9 eGFR 53.62 BUN/Creatinine Ratio 21.4 H Glucose 111 H Estimat Average Glucose 128 Hemoglobin A1c 6.1 H Calcium 8.3 L Magnesium 1.4 L Total Bilirubin 0.5 AST 15 ALT 11 Alkaline Phosphatase 40 Total Protein 4.7 L D Albumin 2.9 L Globulin 1.8 L Albumin/Globulin Ratio 1.6 Vitamin B12 510 Urine Color Yellow Urine Appearance Cloudy A Urine pH 5.5 Ur Specific [place] 1.021 Urine Protein Trace H Urine Glucose (UA) Negative Urine Ketones Negative Urine Blood Negative Urine Nitrite Negative Urine Bilirubin Negative Urine Urobilinogen Negative Ur Leukocyte Esterase 3+ H Urine WBC (Auto) 21-50 H Urine RBC (Auto) 3-5 H U Hyaline Cast (Auto) 0-2 U Epithel Cells (Auto) 6-10 H Urine Bacteria (Auto) None Seen Urine Yeast Present A Adenovirus (PCR) Not Detected B. pertussis DNA (PCR) Not Detected B.parapertussis DNA PCR Not Detected C. pneumoniae DNA (PCR) Not Detected Coronavirus OC43 (PCR) Not Detected Coronavirus HKU1 (PCR) Not Detected Coronavirus 229E (PCR) Not Detected SARS-CoV-2 (PCR) Not Detected Coronavirus NL63 (PCR) Not Detected Human Metapneumovir PCR Not Detected Influenza Type A (PCR) Not Detected Influenza Type B (PCR) Not Detected M. pneumoniae (PCR) Not Detected Parainfluenza 1 (PCR) Not Detected Parainfluenza 2 (PCR) Not Detected Parainfluenza 3 (PCR) Not Detected Parainfluenza 4 (PCR) Not Detected RSV (PCR) Not Detected Entero/Rhino (PCR) Not Detected Diagnostic Findings Chest X-Ray 02/29/24 13:32 XR chest PA, lat, obliques CLINICAL HISTORY: abnormal portable cxr COMPARISON STUDY: Chest radiograph February 28, 2024. FINDINGS: There is no pneumothorax. Trace bilateral pleural effusions are unchanged. Interstitial thickening has slightly improved. Cardiomediastinal silhouette is stable. Patchy right upper lung airspace opacity has improved since exam of February 27, 2024. There are mild bibasilar opacities. IMPRESSION: 1. Interval improvement in pulmonary edema. No change in trace bilateral pleural effusions. 2. Slight improvement in right midlung opacity which favors pneumonia. Continued radiographic follow-up to ensure resolution is recommended. 3. Persistent bibasilar opacities which favor atelectasis although an infectious process could appear similar. ACT 112: Negative or not required by law. Electronically signed by: Jose Funes M.D. 02/29/2024 2:21 PM Renal Ultrasound 02/29/24 13:32 RENAL ULTRASOUND CLINICAL HISTORY: Acute kidney injury. Urinary tract infection. COMPARISON STUDY: CT of the abdomen and pelvis February 03, 2021. TECHNIQUE: Sonography of the kidneys and the urinary bladder was performed. FINDINGS: The right kidney measures 8 x 4.6 x 4.8 cm and the left measures 8.8 x 4.2 x 3.4 cm. There is no hydronephrosis. Several anechoic bilateral renal lesions represent cysts. No renal calculi are identified. There is trace left perinephric fluid. Bladder is collapsed. Right pleural effusion is incidentally noted. IMPRESSION: 1. No hydronephrosis. 2. Several renal cysts. ACT 112: Negative or not required by law. Electronically signed by: Jose Funes M.D. 02/29/2024 2:46 PM PG Care Time/CCT Total # of Minutes Spent Total Time Spent with Patient: Total time spent is greater than 50% in coordination of care (as documented) at patient's floor/unit and/or counseling patient: Coding Level of Care Code 23298 SUB INP/OBS CARE 3/50MIN Diagnoses Allergic drug rash L27.0 Urinary tract infection N39.0 Hematuria presence: without hematuria Urinary tract infection type: site unspecified Acute kidney injury superimposed on stage 3a chronic kidney disease N17.9; N 18.31 Stage 3b chronic kidney disease N18.32 TIA (transient ischemic attack) G45.9 Hypertension I10 Hyperlipidemia E78.5 Dementia F03.90 Prediabetes R73.03 (2) Urinary tract infection Hematuria presence: without hematuria Urinary tract infection type: site unspecified Qualified Code(s): N39.0 - Urinary tract infection, site not specified
[2024-03-01] MEDS: CLOTRIMAZOLE VAGINAL CR 7 APPLN/45 GM TUBE PV SCH (18:11)
[2024-03-01 23:07] VITALS: TEMP 98.4
[2024-03-02 08:03] VITALS: BP 152/63; PULSE 62; RESP 16
[2024-03-02 08:10] LABS: Hematocrit (blood only) 33.4 % (37.0-47.0); Hemoglobin 11.1 g/dl (12.0-16.0); Mean Corpuscular Hemoglobin 30.9 pg (25.0-34.0); Mean Corpuscular Hgb Conc 33.2 g/dL (32.0-36.0); Mean Platelet Volume 9.9 fL (9.4-12.4); Platelet Count 188 K/uL (130-400); RDW Coefficient of Variation 12.8 % (11.5-14.5); RDW Standard Deviation 43.7 fL (36.4-46.3); Red Blood Count 3.59 M/uL (4.20-5.40); White Blood Count 8.55 K/ul (4.8-10.8)
[2024-03-02 08:27] LABS: BUN Creatinine Ratio 17.3 (10-20); Calcium 8.7 mg/dl (8.6-10.3); Magnesium 1.7 mg/dl (1.7-2.4); Potassium 3.9 mmol/L (3.5-5.1)
--- NOTE | 2024-03-02 12:34 | Discharge Summary ---
Discharge Summary Date of Service March 02, 2024 Principal Dx & Hospital Course #1 = Principal Diagnosis (1) Allergic drug rash: (2) Urinary tract infection: (3) Acute kidney injury superimposed on stage 3a chronic kidney disease: (4) Stage 3b chronic kidney disease: (5) TIA (transient ischemic attack): (6) Hypertension: (7) Hyperlipidemia: (8) Dementia: (9) Prediabetes: Plan 83-year-old female with past medical history of dementia, CKD stage IIIb, history of TIA, hypertension who presented to the ER with rash and urinary symptoms. Patient had an outpatient urine culture which grew E. coli and she was treated with Macrobid for 5 days starting 02/21/2024. 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 She called her PCP and was advised not to take the antibiotic and referred back to the ED. In the ED patient was also found to be in SETH with chest x-ray showing vascular congestion although patient without any respiratory symptoms #SETH superimposed on chronic kidney disease stage IIIb #Urinary tract infection Patient has baseline CKD stage IIIb Renal function seems to have worsened since baseline Unclear if this is related to her rash which appears to be allergic Renal ultrasound showed renal cysts, no hydronephrosis Renal function improved with IV fluid hydration Repeat urine culture: Yeast Urine eosinophils are negative Renal function is improved with IV fluid hydration Avoid nephrotoxic agents including NSAIDs Patient is finished total of 5 days of antibiotics and repeat urine culture did not grow any bacteria. I have stopped her antibiotics: Patient is afebrile, white count is normal, she has no urinary symptoms at this point Outpatient referral to nephrology through PCP on discharge for monitoring her CKD #Allergic drug rash Appears to be secondary to IV ceftriaxone Avoid cephalosporins Rash improving Continue cetirizine 10 mg p.o. daily for another 5 days and follow-up with PCP as outpatient for review #History of TIA #Essential hypertension #Hyperlipidemia # Grade 2 diastolic dysfunction on echo, patient asymptomatic 2D echo from 02/29/2024 shows left ventricular systolic function is normal, EF is 60 to 65%, grade 2 diastolic dysfunction noted, mild mitral regurgitation, right ventricular systolic pressure is elevated at 40 to 50 mmHg Continue amlodipine 5 mg p.o. nightly Continue carvedilol 6.25 mg p.o. twice daily Continue Plavix plus statin Initially losartan was held secondary to SETH Renal function has improved and is at her baseline Resume losartan at lower dose of 50 mg daily instead of 50 mg twice daily Patient denies any cough or shortness of breath. She is saturating well on room air. Chest x-ray showing improvement in vascular congestion Outpatient follow-up with PCP for cardiology referral and also repeat chest x- ray in 2 weeks time through PCP #Dementia Patient follows up with neurology as outpatient Continue Aricept and Namenda Continue citalopram Supportive care from nursing staff #Prediabetes A1c 6.1 Avoid high sugar foods and sodas Outpatient follow-up with PCP #Exposure to enterovirus in ED Patient is saturating well on room air, no cough and she is afebrile Respiratory bio fire is negative Patient seen and examined today. She is stable for discharge. I have gone over the discharge care plan, follow-up, medications with the patient in great detail and answered all questions I will also left a voicemail message for her daughter Eneida Suggs ([phone]) to update on the phone This discharge took greater than 30 minutes to coordinate Admission HPI Per Admitting Provider Haley Perez is a 83 year old female who presents to the ER with rash and urinary symptoms. She reports ongoing urinary frequency with some change in color since the end of March. Urine culture at that time grew E. coli and she was treated with Macrobid starting 02/20 for 5 days. Due to no change in her symptoms she went to the ER yesterday on February 26 and was given IV ceftriaxone and discharged on cephalexin. 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 She called her PCP and was advised not to take the antibiotic and she was refer red to the ER. Of note CXR yesterday was somewhat concerning for pulmonary edema however she denies any chest pain, shortness of breath or cough. No history of heart failure. Discharge Exam General: No acute distress Psych: Awake and alert, oriented to place and person HEENT: Anicteric sclera, moist oral mucosa CVS: Regular rate and rhythm Lungs: Bilateral air entry, no wheezing noted Abdomen: Soft, nontender, no rebound, no guarding Ext: No lower extremity edema, no calf tenderness Neuro: No focal motor deficits noted Skin: Maculopapular rash noted over arms legs torso and back: Improving Discharge Plan Discharge Items Patient Disposition: Home - Self-Care Reason For Visit: UTI, SETH Discharge Diagnosis: #SETH superimposed on chronic kidney disease stage IIIb #Urinary tract infection #Allergic drug rash #History of TIA #Essential hypertension #Hyperlipidemia # Grade 2 diastolic dysfunction on echo, patient asymptomatic #Dementia #Prediabetes Condition on Discharge: Fair Activity: Resume your previous activity Non-emergency contact: Primary Care Provider Call non-emergency contact if: you have any medication questions, your symptoms worsen and you have a fever Follow-up/Referrals: Jose Washington CRNP [Primary Care Provider] - 03/05/24 5:00 pm Diet: Heart Healthy Diet Comment: Avoid sodas and high sugar foods Addtl Attending Provider Instructions: DISCHARGE INSTRUCTION TO PATIENT/FAMILY: Follow-up with your primary care provider within 1 week regarding: Posthospital discharge, medication review, medication refills and follow-up on all your medical problems, prediabetes, chronic kidney disease stage III, diastolic dysfunction noted on echo and referral to nephrology and cardiology through PCP Please take all your discharge medications, discharge information and discharge instructions to all your doctors appointments. Avoid all NSAIDs including ibuprofen, Motrin, Advil, Aleve, naproxen, meloxicam, Toradol, diclofenac since you have chronic kidney disease stage III You had echocardiogram of your heart done which shows you have grade 2 diastolic dysfunction with mild mitral regurgitation: Please see your PCP for referral to cardiology as outpatient You have chronic kidney disease stage III: Please see your PCP for referral to nephrology as outpatient You had an allergic drug reaction from getting IV ceftriaxone antibiotic. You are allergic to cephalosporins. Your rash is improving. Please continue with cetirizine 10 mg daily which is an antihistamine for another 5 days and follow- up with your PCP for review I have reduced the doses of famotidine (Pepcid) and losartan since you have chronic kidney disease stage III. Your kidney function had worsened when you were in the hospital and now it has gone back to your baseline kidney function of CKD stage III. Please follow-up with your PCP for monitoring of kidney function Your A1c is 6.1. You have prediabetes. Please avoid sodas and high sugar foods and follow-up with your PCP Labs through PCP in 1 to 2 weeks: CBC, CMP, MG, VITAMIN D, IRON PANEL, TSH, FREE T4, 2 view CHEST XRAY Pending Studies at Discharge: No Stand-Alone Forms: My [facility], Smoking Cessation Medications and DC Order Prescriptions: New clotrimazole 1 % Cream 1 applic vaginal DAILY 5 Days Qty: 45 0RF cetirizine 10 mg Tablet 10 mg PO DAILY Qty: 5 0RF vitamin B complex [Vitamins B Complex] Capsule 1 cap PO QAM Qty: 30 0RF Rx Instructions: available over the counter Continued amlodipine 5 mg tablet 5 mg PO HS Qty: 90 2RF carvedilol [Coreg] 6.25 mg tablet 6.25 mg PO BID Qty: 180 2RF Rx Instructions: must administer with a meal/food citalopram 10 mg tablet 10 mg PO DAILY Qty: 90 1RF dicyclomine 20 mg tablet 20 mg PO BID Qty: 180 1RF clopidogrel 75 mg tablet 75 mg PO DAILY Qty: 90 1RF simvastatin 20 mg tablet 20 mg PO QPM Qty: 90 1RF donepezil 5 mg tablet,disintegrating 5 mg PO DAILY Qty: 90 1RF multivitamin [Daily Multi-Vitamin] tablet 1 tab PO DAILY Saccharomyces boulardii [Daily Probiotic (S. boulardii)] 250 mg capsule 60,000 mmu cells PO DAILY memantine 10 mg tablet 5 mg PO BID estradiol 0.01 % (0.1 mg/gram) cream 0.1 g VAGINAL DIRECTED Rx Instructions: ADMINISTER 0.5 G INTO THE VAGINA TWICE A WEEK AT BEDTIME Changed famotidine 40 mg tablet 20 mg PO BID Qty: 180 3RF losartan 100 mg tablet 50 mg PO DAILY Qty: 90 1RF Discharge Orders: Discharge Order (Routine); Ordered 03/02/24 Ordered By: Jayson Chu/Other Patient Handouts: A1C, Prediabetes, CKD Dc Admission Data Admit Date/Time: 02/28/24 18:14 Attending Provider: Jayson Galvan Admit Provider: Ge Lutz Primary Care Provider: Jose Washington Other Providers: Ge Lutz Hospital Stay Data Consultations 02/28/24 17:49 ED Decision to Admit Stat 02/28/24 18:04 ED Decision to Admit Stat Diagnostic Imagining Performed 02/29/24 13:32 US Kidney Bladder [US renal/blad retro comp] Stat Chest X-Ray 02/28/24 18:16 SINGLE VIEW CHEST CLINICAL HISTORY: Pulmonary edema FINDINGS: An AP, portable, upright chest radiograph is compared to study dated 02/27/2024. The heart is enlarged. There is evidence of congestive failure and pulmonary edema. Right upper lobe airspace opacities have partially cleared from yesterday. There are small pleural effusions with dependent consolidation. No pneumothorax is seen. The skeletal structures are osteopenic. The bony thorax is grossly intact. IMPRESSION: 1. Cardiomegaly with evidence of congestive failure and pulmonary edema. 2. Right upper lobe airspace opacities have partially cleared from yesterday. Continued follow-up to resolution is recommended. 3. Small pleural effusions with dependent consolidation. ACT 112: Negative or not required by law. Electronically signed by: Brandt Hadley M.D. 02/28/2024 6:58 PM Chest X-Ray 02/29/24 13:32 XR chest PA, lat, obliques CLINICAL HISTORY: abnormal portable cxr COMPARISON STUDY: Chest radiograph February 28, 2024. FINDINGS: There is no pneumothorax. Trace bilateral pleural effusions are unchanged. Interstitial thickening has slightly improved. Cardiomediastinal silhouette is stable. Patchy right upper lung airspace opacity has improved since exam of February 27, 2024. There are mild bibasilar opacities. IMPRESSION: 1. Interval improvement in pulmonary edema. No change in trace bilateral pleural effusions. 2. Slight improvement in right midlung opacity which favors pneumonia. Continued radiographic follow-up to ensure resolution is recommended. 3. Persistent bibasilar opacities which favor atelectasis although an infectious process could appear similar. ACT 112: Negative or not required by law. Electronically signed by: Jose Funes M.D. 02/29/2024 2:21 PM Renal Ultrasound 02/29/24 13:32 RENAL ULTRASOUND CLINICAL HISTORY: Acute kidney injury. Urinary tract infection. COMPARISON STUDY: CT of the abdomen and pelvis February 03, 2021. TECHNIQUE: Sonography of the kidneys and the urinary bladder was performed. FINDINGS: The right kidney measures 8 x 4.6 x 4.8 cm and the left measures 8.8 x 4.2 x 3.4 cm. There is no hydronephrosis. Several anechoic bilateral renal lesions represent cysts. No renal calculi are identified. There is trace left perinephric fluid. Bladder is collapsed. Right pleural effusion is incidentally noted. IMPRESSION: 1. No hydronephrosis. 2. Several renal cysts. ACT 112: Negative or not required by law. Electronically signed by: Jose Funes M.D. 02/29/2024 2:46 PM 02/28/24 02/29/24 02/29/24 16:23 13:48 19:39 WBC 13.11 H RBC 4.20 Hgb 12.9 Hct 39.7 MCV 94.5 MCH 30.7 MCHC 32.5 RDW Std Deviation 45.6 RDW Coeff of Hafsa 13.2 Plt Count 180 MPV 9.8 Immature Gran % (Auto) 0.5 Neut % (Auto) 76.9 Lymph % (Auto) 13.1 [place] % (Auto) 5.5 Eos % (Auto) 3.9 Baso % (Auto) 0.1 Neut # (Auto) 10.09 H Lymph # (Auto) 1.72 [place] # (Auto) 0.72 H Eos # (Auto) 0.51 H Baso # (Auto) 0.01 Immature Gran # (Auto) 0.06 Sodium 137 Potassium 4.1 Chloride 103 Carbon Dioxide 24 Anion Gap 10 BUN 33 H Creatinine 1.71 H D Est Cr Clr Drug Dosing 22.2 eGFR 29.18 BUN/Creatinine Ratio 19.3 Glucose 115 H Estimat Average Glucose Hemoglobin A1c Calcium 8.8 Magnesium Total Bilirubin 0.9 AST 15 ALT 13 Alkaline Phosphatase 51 B-Natriuretic Peptide 154 H Total Protein 6.3 Albumin 3.7 Globulin 2.6 Albumin/Globulin Ratio 1.4 Vitamin B12 Urine Color Yellow Urine Appearance Cloudy A Urine pH 5.5 Ur Specific [place] 1.021 Urine Protein Trace H Urine Glucose (UA) Negative Urine Ketones Negative Urine Blood Negative Urine Nitrite Negative Urine Bilirubin Negative Urine Urobilinogen Negative Ur Leukocyte Esterase 3+ H Urine WBC (Auto) 21-50 H Urine RBC (Auto) 3-5 H U Hyaline Cast (Auto) 0-2 U Epithel Cells (Auto) 6-10 H Urine Bacteria (Auto) None Seen Urine Yeast Present A Adenovirus (PCR) Not Detected B. pertussis DNA (PCR) Not Detected B.parapertussis DNA PCR Not Detected C. pneumoniae DNA (PCR) Not Detected Coronavirus OC43 (PCR) Not Detected Coronavirus HKU1 (PCR) Not Detected Coronavirus 229E (PCR) Not Detected SARS-CoV-2 (PCR) Not Detected Coronavirus NL63 (PCR) Not Detected Human Metapneumovir PCR Not Detected Influenza Type A (PCR) Not Detected Influenza Type B (PCR) Not Detected M. pneumoniae (PCR) Not Detected Parainfluenza 1 (PCR) Not Detected Parainfluenza 2 (PCR) Not Detected Parainfluenza 3 (PCR) Not Detected Parainfluenza 4 (PCR) Not Detected RSV (PCR) Not Detected Entero/Rhino (PCR) Not Detected 03/01/24 03/02/24 06:15 07:19 WBC 8.98 8.55 RBC 3.52 L 3.59 L Hgb 10.7 L 11.1 L Hct 32.7 L 33.4 L MCV 92.9 93.0 MCH 30.4 30.9 MCHC 32.7 33.2 RDW Std Deviation 43.6 43.7 RDW Coeff of Hafsa 12.9 12.8 Plt Count 154 188 MPV 9.9 9.9 Immature Gran % (Auto) 0.4 Neut % (Auto) 64.6 Lymph % (Auto) 21.2 [place] % (Auto) 5.1 Eos % (Auto) 8.5 Baso % (Auto) 0.2 Neut # (Auto) 5.80 Lymph # (Auto) 1.90 [place] # (Auto) 0.46 Eos # (Auto) 0.76 H Baso # (Auto) 0.02 Immature Gran # (Auto) 0.04 Sodium 139 139 Potassium 3.9 3.9 Chloride 110 H 111 H Carbon Dioxide 22 21 Anion Gap 7 7 BUN 22 19 Creatinine 1.03 D 1.10 Est Cr Clr Drug Dosing 36.9 35.0 eGFR 53.62 49.55 BUN/Creatinine Ratio 21.4 H 17.3 Glucose 111 H 108 H Estimat Average Glucose 128 Hemoglobin A1c 6.1 H Calcium 8.3 L 8.7 Magnesium 1.4 L 1.7 Total Bilirubin 0.5 AST 15 ALT 11 Alkaline Phosphatase 40 B-Natriuretic Peptide Total Protein 4.7 L D Albumin 2.9 L Globulin 1.8 L Albumin/Globulin Ratio 1.6 Vitamin B12 510 Urine Color Urine Appearance Urine pH Ur Specific [place] Urine Protein Urine Glucose (UA) Urine Ketones Urine Blood Urine Nitrite Urine Bilirubin Urine Urobilinogen Ur Leukocyte Esterase Urine WBC (Auto) Urine RBC (Auto) U Hyaline Cast (Auto) U Epithel Cells (Auto) Urine Bacteria (Auto) Urine Yeast Adenovirus (PCR) B. pertussis DNA (PCR) B.parapertussis DNA PCR C. pneumoniae DNA (PCR) Coronavirus OC43 (PCR) Coronavirus HKU1 (PCR) Coronavirus 229E (PCR) SARS-CoV-2 (PCR) Coronavirus NL63 (PCR) Human Metapneumovir PCR Influenza Type A (PCR) Influenza Type B (PCR) M. pneumoniae (PCR) Parainfluenza 1 (PCR) Parainfluenza 2 (PCR) Parainfluenza 3 (PCR) Parainfluenza 4 (PCR) RSV (PCR) Entero/Rhino (PCR) 02/29/24 13:48 Urine Culture - Final Urine,Straight Cath Yeast not Jane albicans/dub 03/02/24 07:19 WBC 8.55 RBC 3.59 L Hgb 11.1 L Hct 33.4 L MCV 93.0 MCH 30.9 MCHC 33.2 RDW Std Deviation 43.7 RDW Coeff of Hafsa 12.8 Plt Count 188 MPV 9.9 Sodium 139 Potassium 3.9 Chloride 111 H Carbon Dioxide 21 Anion Gap 7 BUN 19 Creatinine 1.10 Est Cr Clr Drug Dosing 35.0 eGFR 49.55 BUN/Creatinine Ratio 17.3 Glucose 108 H Calcium 8.7 Magnesium 1.7 Pending Results Patient Have Any Pending Studies at Discharge: No Discharge Instructions Given to Patient (Per Discharging Provider) DISCHARGE INSTRUCTION TO PATIENT/FAMILY: Follow-up with your primary care provider within 1 week regarding: Posthospital discharge, medication review, medication refills and follow-up on all your medical problems, prediabetes, chronic kidney disease stage III, diastolic dysfunction noted on echo and referral to nephrology and cardiology through PCP Please take all your discharge medications, discharge information and discharge instructions to all your doctors appointments. Avoid all NSAIDs including ibuprofen, Motrin, Advil, Aleve, naproxen, meloxicam, Toradol, diclofenac since you have chronic kidney disease stage III You had echocardiogram of your heart done which shows you have grade 2 diastolic dysfunction with mild mitral regurgitation: Please see your PCP for referral to cardiology as outpatient You have chronic kidney disease stage III: Please see your PCP for referral to nephrology as outpatient You had an allergic drug reaction from getting IV ceftriaxone antibiotic. You are allergic to cephalosporins. Your rash is improving. Please continue with cetirizine 10 mg daily which is an antihistamine for another 5 days and follow- up with your PCP for review I have reduced the doses of famotidine (Pepcid) and losartan since you have chronic kidney disease stage III. Your kidney function had worsened when you were in the hospital and now it has gone back to your baseline kidney function of CKD stage III. Please follow-up with your PCP for monitoring of kidney function Your A1c is 6.1. You have prediabetes. Please avoid sodas and high sugar foods and follow-up with your PCP Labs through PCP in 1 to 2 weeks: CBC, CMP, MG, VITAMIN D, IRON PANEL, TSH, FREE T4, 2 view CHEST XRAY Total Time Total Time Spent Total Time Spent (In Minutes): 40 minutes Total Time Includes: Examination of the Patient, Discharge Planning and Medication Reconciliation Coding Level of Care Code 06929 INP/OBS DISCH >30 MIN Diagnoses Allergic drug rash L27.0 Urinary tract infection N39.0 Hematuria presence: without hematuria Urinary tract infection type: site unspecified Acute kidney injury superimposed on stage 3a chronic kidney disease N17.9; N18.31 Stage 3b chronic kidney disease N18.32 TIA (transient ischemic attack) G45.9 Hypertension I10 Hyperlipidemia E78.5 Dementia F03.90 Prediabetes R73.03
== END 2024-03-02 14:16 | disposition home or self-care (01) ==
LOC: ED 14:31 → EDINP 14:31 → SUATTDRO 18:14 → 3W 02-29 15:48